=== PATIENT | male | born 1995 | race Caucasian/White ===

== ENCOUNTER 2019-04-26 16:34 | Emergency (ER) | payer OTHER ==
[~2019-04-26] VITALS: Ht 175.3 cm; Wt 72.7 kg
[2019-04-26 16:44] VITALS: BP 144/87
[2019-04-26 19:06] VITALS: PULSE 80; TEMP 98.2
== END 2019-04-26 19:10 | disposition home or self-care (01) ==
LOC: COL.ER 16:34
DX: S61.012A Laceration without foreign body of left thumb without damage to nail, initial encounter (principal); W26.8XXA Contact with other sharp object(s), not elsewhere classified, initial encounter

== ENCOUNTER 2019-05-25 07:57 | Outpatient (RCR) | payer OTHER | END 2019-05-29 12:40 | disposition still patient (30) | LOC: WSOH 07:57 | DX: S61.112A Laceration without foreign body of left thumb with damage to nail, initial encounter (principal); J30.2 Other seasonal allergic rhinitis; Y99.0 Civilian activity done for income or pay ==